=== PATIENT | male | born 1980 | race Two or more races ===

== ENCOUNTER → 2020-04-25 | Emergency (ER) | payer OTHER ==
[~2020-04-25] VITALS: Ht 180.3 cm; Wt 79.4 kg
[~2020-04-25] MED LIST: CLONAZEPAM0.5 MG PO; TRAMADOL HCL-AP1 TAB PO
== END | disposition left against medical advice (07) ==
LOC: ER 03:40
DX: R53.81 Other malaise (principal); F41.8 Other specified anxiety disorders